=== PATIENT | male | born 1980 | race African-American/Black ===

== ENCOUNTER 2018-01-27 19:00 | Emergency (ER) | payer OTHER ==
[~2018-01-27] VITALS: Ht 165.1 cm; Wt 70.8 kg
[2018-01-27 19:07] VITALS: Ht 165.1 cm; Wt 70.8 kg
[2018-01-27 19:36] VITALS: BP 136/78
== END 2018-01-27 19:36 | disposition home or self-care (01) ==
LOC: ED 19:00
DX: H60.93 Unspecified otitis externa, bilateral (principal); I10 Essential (primary) hypertension; Z88.8 Allergy status to other drugs, medicaments and biological substances

== ENCOUNTER 2018-01-27 20:44 | Emergency (ER) | payer OTHER | END 2018-01-27 21:42 | disposition left against medical advice (07) | LOC: ED 20:44 | DX: Z53.21 Procedure and treatment not carried out due to patient leaving prior to being seen by health care provider (principal) ==

== ENCOUNTER 2018-02-07 19:29 | Emergency (ER) | payer OTHER ==
[~2018-02-07] VITALS: Ht 165.1 cm; Wt 73.0 kg
[2018-02-07 21:13] VITALS: Ht 165.1 cm; Wt 73.0 kg
[2018-02-07 22:42] LABS: microscopic required? NO
[2018-02-07 22:55] LABS: BASOPHIL % 0.5 % (0-2)
[2018-02-07 22:56] LABS: PLATELET COUNT 405 x10^3mcL (130-400); RED CELL DISTRIBUTION WIDTH 16.3 % (11.5-14.5)
[2018-02-07 22:59] LABS: UA SPECIFIC GRAVITY <=1.005 (1.005-1.035); urine erythrocyte NEGATIVE (NEGATIVE)
[2018-02-07 23:03] LABS: CALCIUM 8.4 mg/dL (8.5-10.1); CARBON DIOXIDE 23.7 mmol/L (21-32); CHLORIDE SERUM 106 mmol/L (98-107); GFR1 > 60 mL/min; GLUCOSE SERUM 92 mg/dL (74-106); POTASSIUM SERUM 4.3 mmol/L (3.5-5.1); SODIUM SERUM 141 mmol/L (136-145)
[2018-02-07 23:08] LABS: ALBUMIN 3.6 g/dL (3.4-5.0); ALKALINE PHOSPHATASE 79 U/L (46-116); ALT/SGPT 26 U/L (16-63); AST/SGOT 16 U/L (15-37); BILIRUBIN TOTAL 0.22 mg/dL (0.20-1.00)
[2018-02-07 23:28] LABS: AMPHETAMINE QUAL UR NONE DETECTED (See below)
[2018-02-08 01:39] VITALS: BP 122/71
== END 2018-02-08 01:39 | disposition home or self-care (01) ==
LOC: ED 19:29
PROVIDERS: Emergency Medicine
DX: R06.00 Dyspnea, unspecified (principal); K59.00 Constipation, unspecified; F20.9 Schizophrenia, unspecified; Z88.8 Allergy status to other drugs, medicaments and biological substances
CPT/HCPCS: 83880; J0171; J1200; J2930; J3490; J7030; Q0092

== ENCOUNTER 2018-03-18 15:36 | Emergency (ER) | payer OTHER ==
[~2018-03-18] VITALS: Ht 165.1 cm; Wt 74.4 kg
[2018-03-18 15:40] VITALS: BP 136/93; Ht 165.1 cm; Wt 74.4 kg
== END 2018-03-18 16:24 | disposition home or self-care (01) ==
LOC: ED 15:36
DX: H60.91 Unspecified otitis externa, right ear (principal); F20.9 Schizophrenia, unspecified; F17.210 Nicotine dependence, cigarettes, uncomplicated; Z88.8 Allergy status to other drugs, medicaments and biological substances

== ENCOUNTER 2018-03-26 18:48 | Emergency (ER) | payer OTHER ==
[~2018-03-26] VITALS: Ht 165.1 cm; Wt 72.3 kg
[2018-03-26 19:00] VITALS: Ht 165.1 cm; Wt 72.3 kg
[2018-03-26 21:04] VITALS: BP 125/82
== END 2018-03-26 21:27 | disposition home or self-care (01) ==
LOC: ED 18:48
DX: F20.9 Schizophrenia, unspecified (principal); G47.00 Insomnia, unspecified; Z88.8 Allergy status to other drugs, medicaments and biological substances

== ENCOUNTER 2018-05-16 22:36 | Emergency (ER) | payer OTHER ==
[~2018-05-16] VITALS: Ht 165.1 cm; Wt 79.8 kg
[2018-05-16 22:54] VITALS: Ht 165.1 cm; Wt 79.8 kg
[2018-05-17 01:34] VITALS: BP 126/63
== END 2018-05-17 01:34 | disposition home or self-care (01) ==
LOC: ED 22:36
DX: G47.00 Insomnia, unspecified (principal); F41.0 Panic disorder [episodic paroxysmal anxiety]; Z88.8 Allergy status to other drugs, medicaments and biological substances; F20.9 Schizophrenia, unspecified

== ENCOUNTER 2018-05-29 13:02 | Emergency (ER) | payer OTHER ==
[~2018-05-29] VITALS: Ht 165.1 cm; Wt 78.9 kg
[2018-05-29 13:11] VITALS: Ht 165.1 cm; Wt 78.9 kg
[2018-05-29 16:38] VITALS: BP 115/73
== END 2018-05-29 16:38 | disposition home or self-care (01) ==
LOC: ED 13:02
DX: S16.1XXA Strain of muscle, fascia and tendon at neck level, initial encounter (principal); F20.9 Schizophrenia, unspecified; R06.02 Shortness of breath; Z88.8 Allergy status to other drugs, medicaments and biological substances; X58.XXXA Exposure to other specified factors, initial encounter; Y93.89 Activity, other specified; Y92.89 Other specified places as the place of occurrence of the external cause; Y99.8 Other external cause status
CPT/HCPCS: J7620

== ENCOUNTER 2018-05-29 21:57 | Emergency (ER) | payer OTHER ==
[~2018-05-29] VITALS: Ht 165.1 cm; Wt 81.2 kg
[2018-05-29 22:07] VITALS: BP 119/74; Ht 165.1 cm; Wt 81.2 kg
== END 2018-05-30 | disposition home or self-care (01) ==
LOC: ED 21:57
DX: S16.1XXA Strain of muscle, fascia and tendon at neck level, initial encounter (principal); F41.9 Anxiety disorder, unspecified; R06.02 Shortness of breath; Z88.8 Allergy status to other drugs, medicaments and biological substances; X58.XXXA Exposure to other specified factors, initial encounter; Y93.89 Activity, other specified; Y92.89 Other specified places as the place of occurrence of the external cause; Y99.8 Other external cause status
CPT/HCPCS: Q0092

== ENCOUNTER 2018-05-31 20:15 | Emergency (ER) | payer OTHER ==
[~2018-05-31] VITALS: Ht 165.1 cm; Wt 81.2 kg
[2018-05-31 20:22] VITALS: Ht 165.1 cm; Wt 81.2 kg
[2018-05-31 23:06] VITALS: BP 106/44
== END 2018-05-31 23:06 | disposition home or self-care (01) ==
LOC: ED 20:15
DX: G25.71 Drug induced akathisia (principal); F20.9 Schizophrenia, unspecified; Z88.8 Allergy status to other drugs, medicaments and biological substances
CPT/HCPCS: Q0163

== ENCOUNTER 2018-06-07 21:56 | Emergency (ER) | payer OTHER ==
[~2018-06-07] VITALS: Ht 165.1 cm; Wt 80.3 kg
[2018-06-07 22:01] VITALS: Ht 165.1 cm; Wt 80.3 kg
[2018-06-08 01:23] VITALS: BP 137/86
== END 2018-06-08 01:23 | disposition home or self-care (01) ==
LOC: ED 21:56
DX: R06.4 Hyperventilation (principal); T78.1XXA Other adverse food reactions, not elsewhere classified, initial encounter; X58.XXXA Exposure to other specified factors, initial encounter; F20.0 Paranoid schizophrenia
CPT/HCPCS: Q0163

== ENCOUNTER 2018-06-10 16:49 | Emergency (ER) | payer OTHER ==
[~2018-06-10] VITALS: Ht 165.1 cm; Wt 104.3 kg
[2018-06-10 17:11] VITALS: Ht 165.1 cm; Wt 104.3 kg
[2018-06-10 19:28] VITALS: BP 138/86
== END 2018-06-10 20:06 | disposition home or self-care (01) ==
LOC: ED 16:49
DX: F41.9 Anxiety disorder, unspecified (principal); R06.4 Hyperventilation; F20.0 Paranoid schizophrenia; Z88.8 Allergy status to other drugs, medicaments and biological substances
CPT/HCPCS: 36600

== ENCOUNTER 2018-06-12 01:36 | Emergency (ER) | payer OTHER ==
[~2018-06-12] VITALS: Ht 165.1 cm; Wt 81.2 kg
[2018-06-12 01:39] VITALS: Ht 165.1 cm; Wt 81.2 kg
[2018-06-12 02:44] LABS: CALCIUM 8.7 mg/dL (8.5-10.1); CARBON DIOXIDE 28.6 mmol/L (21-32); CHLORIDE SERUM 103 mmol/L (98-107); GFR1 > 60 mL/min; GLUCOSE SERUM 91 mg/dL (74-106); POTASSIUM SERUM 3.7 mmol/L (3.5-5.1); SODIUM SERUM 138 mmol/L (136-145)
[2018-06-12 02:49] LABS: AMPHETAMINE QUAL UR NONE DETECTED (See below)
[2018-06-12 02:49] LABS: BASOPHIL % 0.5 % (0-2); PLATELET COUNT 313 x10^3mcL (130-400)
[2018-06-12 02:50] LABS: RED CELL DISTRIBUTION WIDTH 15.8 % (11.5-14.5)
[2018-06-12 03:33] VITALS: BP 115/55
== END 2018-06-12 03:34 | disposition home or self-care (01) ==
LOC: ED 01:36
PROVIDERS: Emergency Medicine
DX: R06.02 Shortness of breath (principal); R42 Dizziness and giddiness; F20.9 Schizophrenia, unspecified; Z88.8 Allergy status to other drugs, medicaments and biological substances
CPT/HCPCS: 36415; Q0092

== ENCOUNTER 2018-06-18 21:43 | Emergency (ER) | payer OTHER ==
[2018-06-18 22:11] VITALS: Ht 165.1 cm
[2018-06-19 03:00] VITALS: BP 132/78
== END 2018-06-19 03:03 | disposition home or self-care (01) ==
LOC: ED 21:43
DX: F41.0 Panic disorder [episodic paroxysmal anxiety] (principal); R06.4 Hyperventilation; F20.0 Paranoid schizophrenia; Z88.8 Allergy status to other drugs, medicaments and biological substances

== ENCOUNTER 2018-06-24 20:43 | Emergency (ER) | payer OTHER ==
[~2018-06-24] VITALS: Ht 165.1 cm; Wt 81.2 kg
[2018-06-24 21:28] VITALS: Ht 165.1 cm; Wt 81.2 kg
[2018-06-24 23:16] VITALS: BP 117/69
== END 2018-06-24 23:16 | disposition home or self-care (01) ==
LOC: ED 20:43
DX: F41.9 Anxiety disorder, unspecified (principal); F17.210 Nicotine dependence, cigarettes, uncomplicated; Z88.8 Allergy status to other drugs, medicaments and biological substances

== ENCOUNTER 2018-06-29 22:40 | Emergency (ER) | payer OTHER ==
[~2018-06-29] VITALS: Ht 165.1 cm; Wt 81.8 kg
[2018-06-29 22:52] VITALS: Ht 165.1 cm; Wt 81.8 kg
[2018-06-29 23:18] VITALS: BP 138/68
[2018-06-29 23:29] LABS: BASOPHIL % 0.4 % (0-2); PLATELET COUNT 263 x10^3mcL (130-400)
[2018-06-29 23:32] LABS: RED CELL DISTRIBUTION WIDTH 16.4 % (11.5-14.5)
[2018-06-29 23:43] LABS: CALCIUM 7.7 mg/dL (8.5-10.1); CARBON DIOXIDE 29.6 mmol/L (21-32); CHLORIDE SERUM 104 mmol/L (98-107); CREATININE SERUM 1.3 mg/dL (0.7-1.3); GFR1 > 60 mL/min; GLUCOSE SERUM 71 mg/dL (74-106); POTASSIUM SERUM 3.7 mmol/L (3.5-5.1); SODIUM SERUM 139 mmol/L (136-145)
[2018-06-29 23:49] LABS: ALKALINE PHOSPHATASE 61 U/L (46-116); ALT/SGPT 36 U/L (16-63); AST/SGOT 20 U/L (15-37); BILIRUBIN TOTAL 0.1 mg/dL (0.20-1.00)
[2018-06-29 23:50] LABS: ALBUMIN 3.2 g/dL (3.4-5.0); TOTAL PROTEIN, SERUM 6.1 g/dL (6.4-8.2)
== END 2018-06-30 01:42 | disposition home or self-care (01) ==
LOC: ED 22:40
PROVIDERS: Emergency Medicine
DX: S09.8XXA Other specified injuries of head, initial encounter (principal); F41.9 Anxiety disorder, unspecified; F20.9 Schizophrenia, unspecified; F17.210 Nicotine dependence, cigarettes, uncomplicated; Z88.8 Allergy status to other drugs, medicaments and biological substances; X58.XXXA Exposure to other specified factors, initial encounter; Y93.89 Activity, other specified; Y92.89 Other specified places as the place of occurrence of the external cause; Y99.8 Other external cause status
CPT/HCPCS: 36415; Q0092

== ENCOUNTER 2018-07-05 13:06 | Emergency (ER) | payer OTHER ==
[~2018-07-05] VITALS: Ht 162.6 cm; Wt 79.4 kg
[2018-07-05 13:17] VITALS: BP 129/80; Ht 162.6 cm; Wt 79.4 kg
== END 2018-07-05 15:32 | disposition left against medical advice (07) ==
LOC: ED 13:06
DX: Z53.21 Procedure and treatment not carried out due to patient leaving prior to being seen by health care provider (principal)

== ENCOUNTER 2018-07-08 16:27 | Emergency (ER) | payer OTHER ==
[~2018-07-08] VITALS: Ht 165.1 cm; Wt 83.9 kg
[2018-07-08 16:55] VITALS: Ht 165.1 cm; Wt 83.9 kg
[2018-07-08 18:37] VITALS: BP 125/67
== END 2018-07-08 18:37 | disposition home or self-care (01) ==
LOC: ED 16:27
DX: F23 Brief psychotic disorder (principal); J06.9 Acute upper respiratory infection, unspecified; Z88.8 Allergy status to other drugs, medicaments and biological substances

== ENCOUNTER 2018-07-10 11:41 | Emergency (ER) | payer OTHER | END 2018-07-10 12:01 | disposition left against medical advice (07) | LOC: ED 11:41 | DX: Z53.21 Procedure and treatment not carried out due to patient leaving prior to being seen by health care provider (principal) ==

== ENCOUNTER 2018-07-10 20:30 | Emergency (ER) | payer OTHER ==
[~2018-07-10] VITALS: Ht 165.1 cm; Wt 79.4 kg
[2018-07-10 21:15] VITALS: BP 124/83; Ht 165.1 cm; Wt 79.4 kg
== END 2018-07-10 23:26 | disposition home or self-care (01) ==
LOC: ED 20:30
DX: F23 Brief psychotic disorder (principal); Z88.8 Allergy status to other drugs, medicaments and biological substances

== ENCOUNTER 2018-08-06 15:09 | Emergency (ER) | payer OTHER ==
[~2018-08-06] VITALS: Ht 165.1 cm; Wt 85.3 kg
[2018-08-06 15:11] VITALS: Ht 165.1 cm; Wt 85.3 kg
[2018-08-06 17:28] VITALS: BP 143/72
== END 2018-08-06 17:28 | disposition home or self-care (01) ==
LOC: ED 15:09
DX: F41.9 Anxiety disorder, unspecified (principal); F17.210 Nicotine dependence, cigarettes, uncomplicated; Z88.8 Allergy status to other drugs, medicaments and biological substances
CPT/HCPCS: Q0092

== ENCOUNTER 2018-08-11 03:50 | Emergency (ER) | payer OTHER ==
[~2018-08-11] VITALS: Ht 165.1 cm; Wt 87.1 kg
[2018-08-11 03:55] VITALS: Ht 165.1 cm; Wt 87.1 kg
[2018-08-11 05:18] VITALS: BP 124/78
== END 2018-08-11 05:18 | disposition home or self-care (01) ==
LOC: ED 03:50
DX: R06.00 Dyspnea, unspecified (principal); R06.02 Shortness of breath; K59.00 Constipation, unspecified; Z88.8 Allergy status to other drugs, medicaments and biological substances

== ENCOUNTER 2018-08-25 10:47 | Emergency (ER) | payer OTHER ==
[~2018-08-25] VITALS: Ht 165.1 cm; Wt 85.8 kg
[2018-08-25 11:35] VITALS: BP 122/73; Ht 165.1 cm; Wt 85.8 kg
== END 2018-08-25 12:45 | disposition home or self-care (01) ==
LOC: ED 10:47
DX: F41.9 Anxiety disorder, unspecified (principal); R06.00 Dyspnea, unspecified; F20.9 Schizophrenia, unspecified; Z88.8 Allergy status to other drugs, medicaments and biological substances

== ENCOUNTER 2018-08-28 15:08 | Emergency (ER) | payer OTHER ==
[~2018-08-28] VITALS: Ht 162.6 cm; Wt 84.8 kg
[2018-08-28 15:18] VITALS: BP 132/71; Ht 162.6 cm; Wt 84.8 kg
== END 2018-08-28 16:17 | disposition home or self-care (01) ==
LOC: ED 15:08
DX: R06.00 Dyspnea, unspecified (principal); F17.210 Nicotine dependence, cigarettes, uncomplicated; Z71.6 Tobacco abuse counseling; F20.9 Schizophrenia, unspecified; Z88.8 Allergy status to other drugs, medicaments and biological substances
CPT/HCPCS: 99406

== ENCOUNTER 2018-08-30 18:10 | Emergency (ER) | payer OTHER ==
[~2018-08-30] VITALS: Ht 165.1 cm; Wt 87.6 kg
[2018-08-30 18:14] VITALS: Ht 165.1 cm; Wt 87.6 kg
[2018-08-30 20:49] VITALS: BP 125/75
== END 2018-08-30 20:40 | disposition home or self-care (01) ==
LOC: ED 18:10
DX: R06.02 Shortness of breath (principal); F20.9 Schizophrenia, unspecified; Z88.8 Allergy status to other drugs, medicaments and biological substances; Z79.899 Other long term (current) drug therapy

== ENCOUNTER 2018-09-24 16:44 | Emergency (ER) | payer OTHER ==
[~2018-09-24] VITALS: Ht 162.6 cm; Wt 91.2 kg
[2018-09-24 17:04] VITALS: BP 137/84; Ht 162.6 cm; Wt 91.2 kg
== END 2018-09-24 18:36 | disposition home or self-care (01) ==
LOC: ED 16:44
DX: F41.9 Anxiety disorder, unspecified (principal); F20.0 Paranoid schizophrenia; Z88.8 Allergy status to other drugs, medicaments and biological substances

== ENCOUNTER 2018-10-25 20:42 | Emergency (ER) | payer OTHER ==
[~2018-10-25] VITALS: Ht 165.1 cm; Wt 93.0 kg
[2018-10-25 21:15] VITALS: Ht 165.1 cm; Wt 93.0 kg
[2018-10-25 22:06] VITALS: BP 143/99
== END 2018-10-25 22:06 | disposition home or self-care (01) ==
LOC: ED 20:42
DX: H92.01 Otalgia, right ear (principal); R06.00 Dyspnea, unspecified; F41.9 Anxiety disorder, unspecified; F20.9 Schizophrenia, unspecified; Z88.8 Allergy status to other drugs, medicaments and biological substances

== ENCOUNTER 2018-10-28 08:08 | Emergency (ER) | payer OTHER ==
[~2018-10-28] VITALS: Ht 165.1 cm; Wt 92.2 kg
[2018-10-28 08:15] VITALS: Ht 165.1 cm; Wt 92.2 kg
[2018-10-28 08:57] LABS: BASOPHIL % 0.6 % (0-2); PLATELET COUNT 274 x10^3mcL (130-400)
[2018-10-28 09:15] LABS: CARBON DIOXIDE 27.4 mmol/L (21-32); CHLORIDE SERUM 107 mmol/L (98-107); CREATININE SERUM 1.1 mg/dL (0.7-1.3); GFR1 > 60 mL/min; GLUCOSE SERUM 117 mg/dL (74-106); POTASSIUM SERUM 4.4 mmol/L (3.5-5.1); SODIUM SERUM 143 mmol/L (136-145)
[2018-10-28 09:25] LABS: AMPHETAMINE QUAL UR NONE DETECTED (See below)
[2018-10-28 09:28] LABS: ALBUMIN 3.9 g/dL (3.4-5.0); ALKALINE PHOSPHATASE 57 U/L (46-116); ALT/SGPT 36 U/L (16-63); AST/SGOT 15 U/L (15-37); BILIRUBIN TOTAL 0.21 mg/dL (0.20-1.00); T4(THYROXINE) 6.6 ug/dL (4.7-13.3); TOTAL PROTEIN, SERUM 7.3 g/dL (6.4-8.2)
[2018-10-28 14:05] VITALS: BP 124/76
== END 2018-10-28 14:05 | disposition home or self-care (01) ==
LOC: ED 08:08
PROVIDERS: Emergency Medicine
DX: F20.9 Schizophrenia, unspecified (principal); F41.9 Anxiety disorder, unspecified; Z88.8 Allergy status to other drugs, medicaments and biological substances
CPT/HCPCS: 36415; G0480

== ENCOUNTER 2018-10-29 14:26 | Emergency (ER) | payer OTHER ==
[~2018-10-29] VITALS: Ht 165.1 cm; Wt 90.7 kg
[2018-10-29 14:52] VITALS: BP 126/71; Ht 165.1 cm; Wt 90.7 kg
== END 2018-10-29 16:30 | disposition home or self-care (01) ==
LOC: ED 14:26
DX: R51 Headache (principal); F20.9 Schizophrenia, unspecified

== ENCOUNTER 2018-10-31 07:23 | Emergency (ER) | payer OTHER ==
[~2018-10-31] VITALS: Ht 165.1 cm; Wt 90.3 kg
[2018-10-31 07:27] VITALS: Ht 165.1 cm; Wt 90.3 kg
[2018-10-31 09:30] VITALS: BP 138/75
== END 2018-10-31 09:30 | disposition home or self-care (01) ==
LOC: ED 07:23
DX: F41.9 Anxiety disorder, unspecified (principal); F20.0 Paranoid schizophrenia; F17.210 Nicotine dependence, cigarettes, uncomplicated; Z88.8 Allergy status to other drugs, medicaments and biological substances
CPT/HCPCS: 99406

== ENCOUNTER 2018-11-30 15:32 | Emergency (ER) | payer OTHER ==
[~2018-11-30] VITALS: Ht 165.1 cm; Wt 95.7 kg
[2018-11-30 15:52] VITALS: BP 132/78; Ht 165.1 cm; Wt 95.7 kg
== END 2018-11-30 17:21 | disposition home or self-care (01) ==
LOC: ED 15:32
DX: K58.1 Irritable bowel syndrome with constipation (principal); F20.9 Schizophrenia, unspecified; Z88.8 Allergy status to other drugs, medicaments and biological substances

== ENCOUNTER 2018-12-06 22:31 | Emergency (ER) | payer OTHER ==
[~2018-12-06] VITALS: Ht 165.1 cm; Wt 95.9 kg
[2018-12-06 22:47] VITALS: Ht 165.1 cm; Wt 95.9 kg
[2018-12-06 23:50] VITALS: BP 127/7
== END 2018-12-06 23:50 | disposition home or self-care (01) ==
LOC: ED 22:31
DX: F41.9 Anxiety disorder, unspecified (principal); F20.0 Paranoid schizophrenia; Z88.8 Allergy status to other drugs, medicaments and biological substances

== ENCOUNTER 2018-12-08 13:11 | Emergency (ER) | payer OTHER ==
[~2018-12-08] VITALS: Ht 165.1 cm; Wt 96.6 kg
[2018-12-08 17:39] VITALS: BP 138/66
== END 2018-12-08 17:39 | disposition home or self-care (01) ==
LOC: ED 13:11
DX: F41.9 Anxiety disorder, unspecified (principal); R06.02 Shortness of breath; Z88.8 Allergy status to other drugs, medicaments and biological substances
CPT/HCPCS: Q0092

== ENCOUNTER 2018-12-09 19:22 | Emergency (ER) | payer OTHER ==
[~2018-12-09] VITALS: Ht 165.1 cm; Wt 95.7 kg
[2018-12-09 19:38] VITALS: BP 123/79; Ht 165.1 cm; Wt 95.7 kg
== END 2018-12-09 22:00 | disposition home or self-care (01) ==
LOC: ED 19:22
DX: R06.02 Shortness of breath (principal); M79.10 Myalgia, unspecified site; F20.9 Schizophrenia, unspecified; I10 Essential (primary) hypertension; Z88.8 Allergy status to other drugs, medicaments and biological substances

== ENCOUNTER 2018-12-12 23:35 | Emergency (ER) | payer OTHER ==
[~2018-12-12] VITALS: Ht 165.1 cm; Wt 96.6 kg
[2018-12-12 23:40] VITALS: Ht 165.1 cm; Wt 96.6 kg
[2018-12-13 00:01] VITALS: BP 156/89
== END 2018-12-13 00:01 | disposition home or self-care (01) ==
LOC: ED 23:35
DX: R06.02 Shortness of breath (principal); F20.9 Schizophrenia, unspecified; I10 Essential (primary) hypertension; Z88.8 Allergy status to other drugs, medicaments and biological substances

== ENCOUNTER 2019-01-16 13:57 | Emergency (ER) | payer OTHER ==
[~2019-01-16] VITALS: Ht 165.1 cm; Wt 105.7 kg
[2019-01-16 14:00] VITALS: BP 139/81; Ht 165.1 cm; Wt 105.7 kg
== END 2019-01-16 18:30 | disposition left against medical advice (07) ==
LOC: ED 13:57
DX: I10 Essential (primary) hypertension (principal); F20.9 Schizophrenia, unspecified; R51 Headache

== ENCOUNTER 2019-01-23 09:38 | Emergency (ER) | payer OTHER ==
[~2019-01-23] VITALS: Ht 165.1 cm; Wt 105.5 kg
[2019-01-23 10:06] VITALS: Ht 165.1 cm; Wt 105.5 kg
[2019-01-23 14:27] VITALS: BP 127/79
== END 2019-01-23 14:27 | disposition home or self-care (01) ==
LOC: ED 09:38
DX: F20.0 Paranoid schizophrenia (principal); I10 Essential (primary) hypertension; Z88.8 Allergy status to other drugs, medicaments and biological substances

== ENCOUNTER 2019-01-25 17:50 | Emergency (ER) | payer OTHER ==
[~2019-01-25] VITALS: Ht 165.1 cm; Wt 107.5 kg
[2019-01-25 17:55] VITALS: Ht 165.1 cm; Wt 107.5 kg
[2019-01-25 21:05] VITALS: BP 130/65
== END 2019-01-25 21:05 | disposition home or self-care (01) ==
LOC: ED 17:50
DX: R51 Headache (principal); I10 Essential (primary) hypertension; F20.9 Schizophrenia, unspecified; F31.9 Bipolar disorder, unspecified; Z88.8 Allergy status to other drugs, medicaments and biological substances

== ENCOUNTER 2019-02-05 18:52 | Emergency (ER) | payer OTHER ==
[~2019-02-05] VITALS: Ht 165.1 cm; Wt 107.5 kg
[2019-02-05 20:16] VITALS: Ht 165.1 cm; Wt 107.5 kg
[2019-02-05 22:53] VITALS: BP 148/89
== END 2019-02-05 22:53 | disposition home or self-care (01) ==
LOC: ED 18:52
DX: R51 Headache (principal); F20.0 Paranoid schizophrenia; I10 Essential (primary) hypertension; Z88.8 Allergy status to other drugs, medicaments and biological substances

== ENCOUNTER 2019-02-10 20:20 | Emergency (ER) | payer OTHER ==
[~2019-02-10] VITALS: Ht 165.1 cm; Wt 104.3 kg
[2019-02-10 20:25] VITALS: Ht 165.1 cm; Wt 104.3 kg
[2019-02-10 20:57] VITALS: BP 141/68
== END 2019-02-10 20:57 | disposition home or self-care (01) ==
LOC: ED 20:20
DX: R51 Headache (principal); F20.9 Schizophrenia, unspecified; I10 Essential (primary) hypertension; F31.9 Bipolar disorder, unspecified; Z88.0 Allergy status to penicillin

== ENCOUNTER 2019-02-25 20:50 | Emergency (ER) | payer OTHER ==
[~2019-02-25] VITALS: Ht 165.1 cm; Wt 110.3 kg
[2019-02-25 21:17] VITALS: BP 136/87
== END 2019-02-26 00:06 | disposition left against medical advice (07) ==
LOC: ED 20:50
DX: Z53.21 Procedure and treatment not carried out due to patient leaving prior to being seen by health care provider (principal)

== ENCOUNTER 2019-03-04 13:44 | Emergency (ER) | payer OTHER ==
[~2019-03-04] VITALS: Ht 165.1 cm; Wt 111.1 kg
[2019-03-04 13:55] VITALS: Ht 165.1 cm; Wt 111.1 kg
[2019-03-04 19:07] VITALS: BP 152/88
== END 2019-03-04 19:07 | disposition home or self-care (01) ==
LOC: ED 13:44
DX: R51 Headache (principal); F20.9 Schizophrenia, unspecified; F31.9 Bipolar disorder, unspecified; F41.9 Anxiety disorder, unspecified; F17.210 Nicotine dependence, cigarettes, uncomplicated; Z88.8 Allergy status to other drugs, medicaments and biological substances

== ENCOUNTER 2019-03-31 17:37 | Emergency (ER) | payer OTHER ==
[~2019-03-31] VITALS: Ht 165.1 cm; Wt 112.9 kg
[2019-03-31 17:45] VITALS: BP 129/81; Ht 165.1 cm; Wt 112.9 kg
== END 2019-03-31 20:36 | disposition left against medical advice (07) ==
LOC: ED 17:37
DX: Z53.21 Procedure and treatment not carried out due to patient leaving prior to being seen by health care provider (principal)

== ENCOUNTER 2019-04-01 18:03 | Emergency (ER) | payer OTHER ==
[~2019-04-01] VITALS: Ht 165.1 cm; Wt 113.4 kg
[2019-04-01 18:08] VITALS: Ht 165.1 cm; Wt 113.4 kg
[2019-04-01 19:04] VITALS: BP 159/88
== END 2019-04-01 19:04 | disposition home or self-care (01) ==
LOC: ED 18:03
DX: F20.9 Schizophrenia, unspecified (principal); F31.9 Bipolar disorder, unspecified; I10 Essential (primary) hypertension; Z88.8 Allergy status to other drugs, medicaments and biological substances

== ENCOUNTER 2019-04-15 13:24 | Emergency (ER) | payer OTHER ==
[~2019-04-15] VITALS: Ht 165.1 cm; Wt 115.2 kg
[2019-04-15 13:31] VITALS: Ht 165.1 cm; Wt 115.2 kg
[2019-04-15 15:17] VITALS: BP 144/85
== END 2019-04-15 15:18 | disposition home or self-care (01) ==
LOC: ED 13:24
DX: R07.89 Other chest pain (principal); R68.84 Jaw pain; I10 Essential (primary) hypertension; F20.9 Schizophrenia, unspecified; F31.9 Bipolar disorder, unspecified; Z88.8 Allergy status to other drugs, medicaments and biological substances

== ENCOUNTER 2019-04-23 12:41 | Emergency (ER) | payer OTHER ==
[~2019-04-23] VITALS: Ht 165.1 cm; Wt 114.8 kg
[2019-04-23 12:46] VITALS: Ht 165.1 cm; Wt 114.8 kg
[2019-04-23 16:30] VITALS: BP 128/95
== END 2019-04-23 17:17 | disposition home or self-care (01) ==
LOC: ED 12:41
DX: F41.9 Anxiety disorder, unspecified (principal); I10 Essential (primary) hypertension; F20.9 Schizophrenia, unspecified; F31.9 Bipolar disorder, unspecified; Z88.8 Allergy status to other drugs, medicaments and biological substances
CPT/HCPCS: Q0092

== ENCOUNTER 2019-05-07 11:57 | Emergency (ER) | payer OTHER ==
[~2019-05-07] VITALS: Ht 177.8 cm; Wt 113.9 kg
[2019-05-07 12:21] VITALS: BP 113/59; Ht 177.8 cm; Wt 113.9 kg
== END 2019-05-07 13:10 | disposition home or self-care (01) ==
LOC: ED 11:57
DX: F20.9 Schizophrenia, unspecified (principal); F41.9 Anxiety disorder, unspecified; I10 Essential (primary) hypertension; Z88.8 Allergy status to other drugs, medicaments and biological substances

== ENCOUNTER 2019-05-14 10:23 | Emergency (ER) | payer OTHER ==
[~2019-05-14] VITALS: Ht 165.1 cm; Wt 114.8 kg
[2019-05-14 10:45] VITALS: Ht 165.1 cm; Wt 114.8 kg
[2019-05-14 12:49] VITALS: BP 138/84
== END 2019-05-14 12:49 | disposition home or self-care (01) ==
LOC: ED 10:23
DX: R51 Headache (principal); F20.9 Schizophrenia, unspecified; I10 Essential (primary) hypertension; Z88.8 Allergy status to other drugs, medicaments and biological substances

== ENCOUNTER 2019-05-24 16:37 | Emergency (ER) | payer OTHER ==
[~2019-05-24] VITALS: Ht 165.1 cm; Wt 118.4 kg
[2019-05-24 16:49] VITALS: Ht 165.1 cm; Wt 118.4 kg
[2019-05-24 19:45] VITALS: BP 144/94
== END 2019-05-24 19:45 | disposition home or self-care (01) ==
LOC: ED 16:37
DX: F20.9 Schizophrenia, unspecified (principal); I10 Essential (primary) hypertension; Z88.8 Allergy status to other drugs, medicaments and biological substances

== ENCOUNTER 2019-06-04 12:31 | Emergency (ER) | payer OTHER ==
[~2019-06-04] VITALS: Ht 165.1 cm; Wt 113.4 kg
[2019-06-04 12:36] VITALS: BP 140/90; Ht 165.1 cm; Wt 113.4 kg
== END 2019-06-04 14:15 | disposition home or self-care (01) ==
LOC: ED 12:31
DX: R51 Headache (principal)

== ENCOUNTER 2019-06-14 15:51 | Emergency (ER) | payer OTHER ==
[~2019-06-14] VITALS: Ht 172.7 cm; Wt 113.9 kg
[2019-06-14 16:20] VITALS: BP 130/70; Ht 172.7 cm; Wt 113.9 kg
== END 2019-06-14 20:00 | disposition home or self-care (01) ==
LOC: ED 15:51
DX: G89.29 Other chronic pain (principal); R51 Headache; F20.9 Schizophrenia, unspecified; F31.9 Bipolar disorder, unspecified; I10 Essential (primary) hypertension; Z88.8 Allergy status to other drugs, medicaments and biological substances
CPT/HCPCS: J1885

== ENCOUNTER 2019-07-02 13:05 | Emergency (ER) | payer OTHER ==
[~2019-07-02] VITALS: Ht 165.1 cm; Wt 113.4 kg
[2019-07-02 13:12] VITALS: BP 124/72; Ht 165.1 cm; Wt 113.4 kg
== END 2019-07-02 14:03 | disposition home or self-care (01) ==
LOC: ED 13:05
DX: J32.8 Other chronic sinusitis (principal); I10 Essential (primary) hypertension; Z88.8 Allergy status to other drugs, medicaments and biological substances

== ENCOUNTER 2019-07-02 17:35 | Emergency (ER) | payer OTHER ==
[~2019-07-02] VITALS: Ht 177.8 cm; Wt 111.1 kg
[2019-07-02 17:46] VITALS: Ht 177.8 cm; Wt 111.1 kg
[2019-07-02 17:51] VITALS: BP 144/83
== END 2019-07-02 17:51 | disposition home or self-care (01) ==
LOC: ED 17:35
DX: J32.0 Chronic maxillary sinusitis (principal); Z76.0 Encounter for issue of repeat prescription

== ENCOUNTER 2019-12-30 19:51 | Emergency (ER) | payer OTHER, SELFPAY ==
[~2019-12-30] VITALS: Ht 165.1 cm; Wt 103.0 kg
[2019-12-30 19:54] VITALS: Ht 165.1 cm; Wt 103.0 kg
[2019-12-30 20:18] VITALS: BP 119/68
== END 2019-12-30 20:18 | disposition home or self-care (01) ==
LOC: ED 19:51
DX: R06.00 Dyspnea, unspecified (principal); I10 Essential (primary) hypertension; F31.9 Bipolar disorder, unspecified; Z88.8 Allergy status to other drugs, medicaments and biological substances

== ENCOUNTER 2020-03-08 18:52 | Emergency (ER) | payer OTHER ==
[~2020-03-08] VITALS: Ht 165.1 cm; Wt 94.8 kg
[2020-03-08 19:17] VITALS: Ht 165.1 cm; Wt 94.8 kg
[2020-03-08 20:54] VITALS: BP 106/68
== END 2020-03-08 20:54 | disposition home or self-care (01) ==
LOC: ED 18:52
DX: R51.9 Headache, unspecified (principal); F17.210 Nicotine dependence, cigarettes, uncomplicated; I10 Essential (primary) hypertension; Z88.8 Allergy status to other drugs, medicaments and biological substances
CPT/HCPCS: J1885